=== PATIENT | female | born 1945 | race Caucasian/White ===

== ENCOUNTER → 2016-08-12 | Outpatient (CLI) | payer OTHER ==
--- NOTE | 2016-08-12 13:05 | MA ---
Diagnostic Digital Mammogram left Breast Clinical Indications: Follow up possible architectural distortion left breast. Technique: Compression was obtained in CC, mediolateral oblique, and 90-degree lateral views of the left breast. This examination is processed by the [employer] computer-aided detection system. Comparison: July 21, 2016; November 02, 2014; and studies dating back to May 03, 2008. Breast density: B; There are scattered areas of fibroglandular density. Findings: CAD was reviewed. The density of concern appears to represent normal overlapping breast parenchymal tissue. No signifi cant abnormality seen. Impression: Benign findings. BI-RADS 2. These findings were communicated with the patient. Recommendation: Routine annual mammography is recommended in one year. [facility] will send a result letter to the patient. Negative mammography should not preclude additional workup of a clinically suspicious finding.
== END ==
LOC: FIMAGING 12:11
PROVIDERS: ATTEND Family Medicine
DX: R92.2 Inconclusive mammogram (principal)
CPT/HCPCS: G0206

== ENCOUNTER → 2017-07-27 | Outpatient (CLI) | payer OTHER | LOC: FIMAGING 09:37 | PROVIDERS: ATTEND Family Medicine | DX: Z12.31 Encounter for screening mammogram for malignant neoplasm of breast (principal) | CPT/HCPCS: G0202 ==

== ENCOUNTER → 2017-11-21 | Outpatient (CLI) | payer OTHER | LOC: FIMAGING 12:13 | PROVIDERS: ATTEND Physician Assistant Medical | DX: R05 Cough (principal); R50.9 Fever, unspecified; R91.8 Other nonspecific abnormal finding of lung field ==

== ENCOUNTER → 2018-08-24 | Outpatient (CLI) | payer OTHER | LOC: FIMAGING 10:44 | PROVIDERS: ATTEND Family Medicine Sports Medicine | DX: Z12.31 Encounter for screening mammogram for malignant neoplasm of breast (principal) ==